=== PATIENT | female | born 1960 | race Caucasian/White ===

== ENCOUNTER 2017-03-29 13:41 | Observation (INO) | payer BC ==
[~2017-03-29] VITALS: Ht 157.5 cm; Wt 93.3 kg
[2017-03-29] MEDS ORDERED: ASPIRIN E.C. 8181 MG PO (14:17)
[2017-03-29] MEDS ORDERED: PROTONIX20 MG PO (14:17)
[2017-03-29] MEDS ORDERED: HYZAAR 25 MG-101 TAB PO (14:18)
[2017-03-29] MEDS ORDERED: REQUIP 1MG T1 MG/TAB PO (14:18)
[2017-03-29] MEDS ORDERED: VITAMIN E 400 U4001 PO (14:19)
[2017-03-29] MEDS ORDERED: CELEXA 20MG20 MG/TAB PO (14:19)
[2017-03-29] MEDS ORDERED: MULTI VITAMINS1 TAB PO (14:19)
[2017-03-29] MEDS ORDERED: IRON90 MG PO (14:20)
[2017-03-29] MEDS ORDERED: VITAMIN D32000 IU PO (14:20)
[2017-03-29 14:54] LABS: BASO # 0.1 (0.0-0.2); BASO % 1.4 % (0.0-2.0); EOS # 0.2 (0.0-0.7); EOS % 3.5 % (0-4.0); GRAN # 3.5 (1.4-6.5); GRAN % 60.7 % (42.2-75.2); HEMATOCRIT 40.2 % (37.0-47.0); HEMOGLOBIN 13.3 g/dl (12.5-16.0); LYMPH # 1.5 (1.2-3.4); LYMPH % 26.7 % (20.0-51.0); MEAN CELL VOLUME 89 fl (80.0-100.0); MEAN CORPUSCULAR HEMOGLOBIN 29 pg (27.0-31.0); MEAN CORPUSCULAR HGB CONC 33 g/dl (33.0-37.0); MEAN PLATELET VOLUME 11.2 fl (7.4-10.4); MONO # 0.4 (0.1-0.6); MONO % 7.5 % (1.7-9.3); PLATELET COUNT 253 K/mm3 (130-400); RED BLOOD COUNT 4.53 M/mm3 (4.10-5.30); REDCELL DISTRIBUTION WIDTH-CV 13.8 % (11.5-14.5); WHITE BLOOD COUNT 5.8 K/mm3 (4.8-10.8)
[2017-03-29 15:00] LABS: PROTHROMBIN TIME 10.8 SECONDS (9.7-12.8)
[2017-03-29 15:03] LABS: ALANINE AMINOTRANSFERASE 41 U/L (9-52); ALBUMIN 4.4 gm/dL (3.5-5.0); ALKALINE PHOSPHATASE 94 U/L (50-136); ANION GAP 16 mmol/L (7-16); BILIRUBIN,TOTAL 0.7 mg/dL (0.0-1.0); BLOOD UREA NITROGEN 13 mg/dL (7-17); CALCIUM 9.3 mg/dL (8.4-10.2); CARBON DIOXIDE 26 mmol/L (22-30); CHLORIDE 102 mmol/L (98-107); CREATININE, serum 0.78 mg/dL (0.52-1.25); GLUCOSE 101 mg/dL (74-106); PARTIAL THROMBOPLASTIN TIME 34.7 SECONDS (26.0-37.0); POTASSIUM 3.6 mmol/L (3.4-5.0); SODIUM 144 mmol/L (137-145); TOTAL PROTEIN 7.3 gm/dL (6.4-8.2)
[2017-03-29 15:15] LABS: TROPONIN-I < 0.012 ng/mL (0.000-0.034)
[2017-03-29 18:42] VITALS: BP 136/50; PULSE 53; TEMP 98.1
[2017-03-29 19:39] VITALS: BP 140/74; PULSE 52; PULSE 58; TEMP 98.1
[2017-03-29 23:51] VITALS: BP 109/54; PULSE 60; TEMP 97.6
[2017-03-30 03:27] VITALS: BP 118/66; PULSE 61; TEMP 98.3
[2017-03-30 07:29] VITALS: BP 125/69; PULSE 52; TEMP 97.5
[2017-03-30 11:07] VITALS: BP 129/72; PULSE 55; TEMP 98
== END 2017-03-30 12:55 | disposition home or self-care (01) ==
LOC: COL.ER 13:41 → MEDICAL 17:13
PROVIDERS: Family Medicine; Internal Medicine Cardiovascular Disease
DX: R07.89 Other chest pain (principal); R00.2 Palpitations; I10 Essential (primary) hypertension; K21.9 Gastro-esophageal reflux disease without esophagitis
CPT/HCPCS: 99239; G0378; J1885; J7030

== ENCOUNTER 2018-12-26 21:20 | Emergency (ER) | payer SELFPAY ==
[~2018-12-26] VITALS: Ht 157.5 cm; Wt 95.5 kg
[~2018-12-26 21:20] MED LIST: ASPIRIN E.C. 8181 MG PO; CELEXA 20MG20 MG/TAB PO; HYZAAR 25 MG-101 TAB PO; IRON90 MG PO; MULTI VITAMINS1 TAB PO; PROTONIX20 MG PO; REQUIP 1MG T1 MG/TAB PO; VITAMIN D32000 IU PO; VITAMIN E 400 U4001 PO
[2018-12-26 21:28] VITALS: TEMP 97.8
[2018-12-26 23:06] LABS: BASO # 0.1 (0.0-0.2); BASO % 0.5 % (0.0-2.0); EOS # 0.1 (0.0-0.7); EOS % 1.4 % (0-4.0); GRAN # 8.4 (1.4-6.5); GRAN % 86.7 % (42.2-75.2); HEMATOCRIT 46.5 % (37.0-47.0); HEMOGLOBIN 15.2 g/dl (12.5-16.0); LYMPH # 0.6 (1.2-3.4); LYMPH % 6.4 % (20.0-51.0); MEAN CELL VOLUME 91 fl (80.0-100.0); MEAN CORPUSCULAR HEMOGLOBIN 30 pg (27.0-31.0); MEAN CORPUSCULAR HGB CONC 33 g/dl (33.0-37.0); MONO # 0.5 (0.1-0.6); MONO % 4.6 % (1.7-9.3); PLATELET COUNT 222 K/mm3 (130-400); RED BLOOD COUNT 5.12 M/mm3 (4.10-5.30); REDCELL DISTRIBUTION WIDTH-CV 13.1 % (11.5-14.5)
[2018-12-26 23:06] LABS: COLLECTION METHOD CLEAN CATCH
[2018-12-26 23:16] LABS: ALANINE AMINOTRANSFERASE 43 U/L (9-52); ALBUMIN 4.5 gm/dL (3.5-5.0); ALKALINE PHOSPHATASE 94 U/L (50-136); ANION GAP 12 mmol/L (7-16); AST,SGOT 41 U/L (15-37); BILIRUBIN,TOTAL 0.7 mg/dL (0.0-1.0); BLOOD UREA NITROGEN 18 mg/dL (7-17); CALCIUM 9.5 mg/dL (8.4-10.2); CARBON DIOXIDE 27 mmol/L (22-30); CHLORIDE 102 mmol/L (98-107); CREATININE, serum 0.74 mg/dL (0.52-1.25); GLUCOSE 100 mg/dL (74-106); LIPASE 97 U/L (23-300); POTASSIUM 3.9 mmol/L (3.4-5.0); SODIUM 141 mmol/L (137-145)
[2018-12-26 23:31] LABS: PROTHROMBIN TIME 11.4 SECONDS (9.7-12.8)
[2018-12-26 23:46] LABS: TROPONIN-I < 0.012 ng/mL (0.000-0.035)
[2018-12-26 23:53] LABS: MUCOUS Present /lpf; PH 5 (5-8); SQUAMOUS EPITHELIAL 0-2 /hpf; URINE APPEARANCE Clear; URINE BACTERIA None Seen /hpf; URINE BILIRUBIN Negative (NEGATIVE); URINE BLOOD 1+ (NEGATIVE); URINE COLOR Yellow; URINE GLUCOSE Negative (NEGATIVE); URINE KETONE Negative (NEGATIVE); URINE LEUKOCYTE ESTERASE Negative (NEGATIVE); URINE NITRATE Negative (NEGATIVE); URINE PROTEIN(semi-quant) Negative (NEGATIVE); URINE UROBILINOGEN Negative (NEGATIVE)
[2018-12-27] MEDS ORDERED: ZOFRAN 4MG T4 MG/TAB PO (02:35)
[2018-12-27 03:00] VITALS: BP 107/75; PULSE 72
== END 2018-12-27 03:00 | disposition home or self-care (01) ==
LOC: COL.ER 21:20
PROVIDERS: Emergency Medicine
DX: R10.31 Right lower quadrant pain (principal); R11.2 Nausea with vomiting, unspecified; I10 Essential (primary) hypertension; K21.9 Gastro-esophageal reflux disease without esophagitis; Z79.82 Long term (current) use of aspirin
CPT/HCPCS: J2405; J3010; J7030; Q9967

== ENCOUNTER → 2019-02-06 | Outpatient (CLI) | payer BC ==
[~2019-02-06] MED LIST changes: +ZOFRAN 4MG T4 MG/TAB PO
== END ==
LOC: MC.RAD 09:34
DX: Z12.31 Encounter for screening mammogram for malignant neoplasm of breast (principal)

== ENCOUNTER → 2019-04-27 | Outpatient (CLI) | payer BC | LOC: ZCOL.LAB 10:32 | DX: R07.9 Chest pain, unspecified (principal) ==

== ENCOUNTER 2019-06-18 08:26 | Outpatient (RCR) | payer BC ==
[2019-06-18 08:26] VITALS: BP 132/59; PULSE 70; TEMP 97.8
[~2019-06-18 08:26] MED LIST changes: +AMOXICILLIN 8751 TAB PO
== END 2019-09-05 | disposition home or self-care (01) ==
LOC: EUO
DX: Z23 Encounter for immunization (principal); S61.451A Open bite of right hand, initial encounter; W55.01XA Bitten by cat, initial encounter

== ENCOUNTER 2019-10-05 18:33 | Emergency (ER) | payer BC ==
[~2019-10-05] VITALS: Ht 157.5 cm; Wt 86.4 kg
[2019-10-05 18:43] VITALS: TEMP 97.4
[2019-10-05 19:22] LABS: BASO # 0.1 (0.0-0.2); BASO % 1.1 % (0.0-2.0); EOS # 0.2 (0.0-0.7); EOS % 3.2 % (0-4.0); GRAN # 3.9 (1.4-6.5); GRAN % 60.6 % (42.2-75.2); HEMOGLOBIN 12.4 g/dl (12.5-16.0); LYMPH # 1.7 (1.2-3.4); LYMPH % 26.1 % (20.0-51.0); MEAN CELL VOLUME 91 fl (80.0-100.0); MEAN CORPUSCULAR HEMOGLOBIN 31 pg (27.0-31.0); MEAN CORPUSCULAR HGB CONC 34 g/dl (33.0-37.0); MEAN PLATELET VOLUME 10.3 fl (7.4-10.4); MONO # 0.6 (0.1-0.6); MONO % 8.5 % (1.7-9.3); PLATELET COUNT 257 K/mm3 (130-400); RED BLOOD COUNT 4.02 M/mm3 (4.10-5.30)
[2019-10-05 19:30] LABS: HEMATOCRIT 36.5 % (37.0-47.0)
[2019-10-05 19:36] LABS: ALANINE AMINOTRANSFERASE 28 U/L (9-52); ALBUMIN 4.2 gm/dL (3.5-5.0); ALKALINE PHOSPHATASE 75 U/L (50-136); ANION GAP 8 mmol/L (7-16); AST,SGOT 29 U/L (15-37); BILIRUBIN,TOTAL 0.3 mg/dL (0.0-1.0); BLOOD UREA NITROGEN 17 mg/dL (7-17); C-REACTIVE PROTEIN 0.7 mg/dL (0.0-0.9); CALCIUM 9.1 mg/dL (8.4-10.2); CARBON DIOXIDE 26 mmol/L (22-30); CHLORIDE 104 mmol/L (98-107); CREATININE, serum 0.85 (0.52-1.25); GLUCOSE 124 mg/dL (74-106); SODIUM 138 mmol/L (137-145); TOTAL PROTEIN 6.9 gm/dL (6.4-8.2)
[2019-10-05 19:45] LABS: TROPONIN-I < 0.012 ng/mL (0.000-0.035)
[2019-10-05] MEDS ORDERED: FLEXERIL 1010 MG/TAB PO (21:34)
[2019-10-05 21:46] VITALS: BP 119/70; PULSE 64
== END 2019-10-05 21:46 | disposition home or self-care (01) ==
LOC: COL.ER 18:33
PROVIDERS: Emergency Medicine
DX: M25.512 Pain in left shoulder (principal); F32.9 Major depressive disorder, single episode, unspecified; I10 Essential (primary) hypertension; Z79.82 Long term (current) use of aspirin
CPT/HCPCS: J2405; J3010

== ENCOUNTER → 2019-12-10 | Outpatient (CLI) | payer BC ==
[~2019-12-10] MED LIST changes: +FLEXERIL 1010 MG/TAB PO
== END ==
LOC: COL.RAD 11:45
DX: R22.1 Localized swelling, mass and lump, neck (principal)

== ENCOUNTER 2020-05-15 10:05 | Emergency (ER) | payer BC ==
[~2020-05-15] VITALS: Ht 157.5 cm; Wt 95.9 kg
[2020-05-15 10:17] VITALS: BP 112/70; TEMP 97.6
[2020-05-15] MEDS ORDERED: VALTREX1 GM PO (11:37)
[2020-05-15 11:45] LABS: BASO # 0.1 (0.0-0.2); BASO % 1.1 % (0.0-2.0); EOS # 0.2 (0.0-0.7); EOS % 3.5 % (0-4.0); GRAN # 3.2 (1.4-6.5); HEMOGLOBIN 11.6 g/dl (12.5-16.0); LYMPH # 1.3 (1.2-3.4); LYMPH % 23.3 % (20.0-51.0); MEAN CELL VOLUME 92 fl (80.0-100.0); MEAN CORPUSCULAR HEMOGLOBIN 31 pg (27.0-31.0); MEAN CORPUSCULAR HGB CONC 34 g/dl (33.0-37.0); MEAN PLATELET VOLUME 10.5 fl (7.4-10.4); MONO # 0.7 (0.1-0.6); PLATELET COUNT 230 K/mm3 (130-400); RED BLOOD COUNT 3.76 M/mm3 (4.10-5.30); REDCELL DISTRIBUTION WIDTH-CV 13.2 % (11.5-14.5)
[2020-05-15 11:48] LABS: HEMATOCRIT 34.6 % (37.0-47.0)
[2020-05-15 11:55] LABS: PARTIAL THROMBOPLASTIN TIME 32.8 SECONDS (26.0-37.0)
[2020-05-15] MEDS ORDERED: FLEXERIL 1010 MG/TAB PO (12:42)
[2020-05-15 13:11] VITALS: PULSE 68
== END 2020-05-15 13:11 | disposition home or self-care (01) ==
LOC: COL.ER 10:05
PROVIDERS: Emergency Medicine
DX: S70.11XA Contusion of right thigh, initial encounter (principal); K21.9 Gastro-esophageal reflux disease without esophagitis; I10 Essential (primary) hypertension; W01.0XXA Fall on same level from slipping, tripping and stumbling without subsequent striking against object, initial encounter; Y92.009 Unspecified place in unspecified non-institutional (private) residence as the place of occurrence of the external cause

== ENCOUNTER 2020-05-19 17:45 | Emergency (ER) | payer BC ==
[~2020-05-19] VITALS: Ht 157.5 cm; Wt 95.9 kg
[~2020-05-19 17:45] MED LIST changes: +VALTREX1 GM PO
[2020-05-19 17:52] VITALS: BP 121/78; TEMP 98.1
[2020-05-19 18:37] LABS: BASO # 0.1 (0.0-0.2); BASO % 1.3 % (0.0-2.0); EOS # 0.2 (0.0-0.7); EOS % 3.1 % (0-4.0); GRAN # 3.5 (1.4-6.5); GRAN % 57.5 % (42.2-75.2); HEMOGLOBIN 11.5 g/dl (12.5-16.0); LYMPH # 1.6 (1.2-3.4); LYMPH % 26.3 % (20.0-51.0); MEAN CELL VOLUME 93 fl (80.0-100.0); MEAN CORPUSCULAR HEMOGLOBIN 31 pg (27.0-31.0); MEAN CORPUSCULAR HGB CONC 33 g/dl (33.0-37.0); MEAN PLATELET VOLUME 10.2 fl (7.4-10.4); MONO # 0.7 (0.1-0.6); MONO % 11.3 % (1.7-9.3); PLATELET COUNT 259 K/mm3 (130-400); RED BLOOD COUNT 3.71 M/mm3 (4.10-5.30); REDCELL DISTRIBUTION WIDTH-CV 14.1 % (11.5-14.5)
[2020-05-19 18:39] LABS: HEMATOCRIT 34.6 % (37.0-47.0); PROTHROMBIN TIME 11.1 SECONDS (9.7-12.8)
[2020-05-19 18:42] LABS: PARTIAL THROMBOPLASTIN TIME 32.3 SECONDS (26.0-37.0)
[2020-05-19 19:45] VITALS: PULSE 78
== END 2020-05-19 19:45 | disposition home or self-care (01) ==
LOC: COL.ER 17:45
PROVIDERS: Physician Assistant
DX: M79.89 Other specified soft tissue disorders (principal); I10 Essential (primary) hypertension; F32.9 Major depressive disorder, single episode, unspecified; Z90.710 Acquired absence of both cervix and uterus
CPT/HCPCS: J1650

== ENCOUNTER → 2020-05-20 | Outpatient (CLI) | payer BC | LOC: COL.VAS 09:16 | DX: M79.89 Other specified soft tissue disorders (principal); M79.661 Pain in right lower leg ==

== ENCOUNTER → 2020-07-14 | Outpatient (CLI) | payer BC ==
[~2020-07-14] VITALS: Ht 157.5 cm; Wt 94.9 kg
[~2020-07-14] MED LIST changes: +CERTAVITE PO; +LUT PO; +NORVASC 5MG5 MG/TAB PO
[2020-07-14 12:21] VITALS: BP 123/68; PULSE 63
[2020-07-14 14:00] VITALS: BP 123/71; PULSE 60
== END ==
LOC: COL.RAD 11:57
DX: E04.1 Nontoxic single thyroid nodule (principal)

== ENCOUNTER → 2020-11-06 | Outpatient (CLI) | payer BC | LOC: COL.RAD 12:12 | DX: R10.2 Pelvic and perineal pain (principal); Z90.710 Acquired absence of both cervix and uterus ==

== ENCOUNTER → 2021-01-30 | Outpatient (CLI) | payer BC | LOC: MC.RAD 07:05 | DX: Z12.31 Encounter for screening mammogram for malignant neoplasm of breast (principal) ==

== ENCOUNTER 2021-02-10 18:54 | Emergency (ER) | payer BC ==
[~2021-02-10] VITALS: Ht 157.5 cm; Wt 99.1 kg
[2021-02-10 18:59] VITALS: TEMP 97.5
[2021-02-10 19:36] LABS: BASO # 0.1 (0.0-0.2); BASO % 1.2 % (0.0-2.0); EOS # 0.2 (0.0-0.7); GRAN # 3.4 (1.4-6.5); GRAN % 56.8 % (42.2-75.2); HEMOGLOBIN 11.3 g/dl (12.5-16.0); LYMPH # 1.6 (1.2-3.4); MEAN CELL VOLUME 87 fl (80.0-100.0); MEAN CORPUSCULAR HEMOGLOBIN 27 pg (27.0-31.0); MEAN CORPUSCULAR HGB CONC 31 g/dl (33.0-37.0); MEAN PLATELET VOLUME 10.6 fl (7.4-10.4); MONO # 0.6 (0.1-0.6); MONO % 10.5 % (1.7-9.3); PLATELET COUNT 276 K/mm3 (130-400); RED BLOOD COUNT 4.18 M/mm3 (4.10-5.30); REDCELL DISTRIBUTION WIDTH-CV 13.8 % (11.5-14.5)
[2021-02-10 19:43] LABS: HEMATOCRIT 36.2 % (37.0-47.0)
[2021-02-10 19:45] LABS: ALANINE AMINOTRANSFERASE 42 U/L (4-34); ALBUMIN 4.2 gm/dL (3.5-5.0); ALKALINE PHOSPHATASE 106 U/L (50-136); ANION GAP 7 mmol/L (7-16); AST,SGOT 45 U/L (15-37); BILIRUBIN,TOTAL 0.2 mg/dL (0.0-1.0); BLOOD UREA NITROGEN 19 mg/dL (7-17); CALCIUM 9.2 mg/dL (8.4-10.2); CARBON DIOXIDE 28 mmol/L (22-30); CHLORIDE 102 mmol/L (98-107); CREATININE, serum 0.89 (0.52-1.25); GLUCOSE 94 mg/dL (74-106); POTASSIUM 3.9 mmol/L (3.4-5.0); SODIUM 137 mmol/L (137-145); TOTAL PROTEIN 7.4 gm/dL (6.4-8.2)
[2021-02-10 19:57] LABS: TROPONIN-I < 0.012 ng/mL (0.000-0.035)
[2021-02-10 20:40] VITALS: BP 139/85; PULSE 65
== END 2021-02-10 20:45 | disposition home or self-care (01) ==
LOC: COL.ER 18:54
PROVIDERS: Nurse Practitioner
DX: R07.89 Other chest pain (principal); I10 Essential (primary) hypertension; Z79.899 Other long term (current) drug therapy

== ENCOUNTER 2021-12-31 22:26 | Inpatient (IN) | payer BC ==
[~2021-12-31] VITALS: Ht 157.5 cm; Wt 103.1 kg
[2021-12-31 22:49] LABS: BASO # 0.1 K/mm3 (0.0-0.2); BASO % 1.2 % (0.0-2.0); EOS # 0.3 K/mm3 (0.0-0.7); GRAN # 3.5 K/mm3 (1.4-6.5); GRAN % 52.4 % (42.2-75.2); HEMOGLOBIN 13.5 g/dl (12.5-16.0); LYMPH % 30.2 % (20.0-51.0); MEAN CELL VOLUME 94 fl (80.0-100.0); MEAN CORPUSCULAR HEMOGLOBIN 32 pg (27-31); MEAN CORPUSCULAR HGB CONC 35 g/dl (33.0-37.0); MEAN PLATELET VOLUME 10.7 fl (7.4-10.4); MONO # 0.8 K/mm3 (0.1-0.6); MONO % 11.8 % (1.7-9.3); PLATELET COUNT 257 K/mm3 (130-400); RED BLOOD COUNT 4.17 M/mm3 (4.10-5.30)
[2021-12-31 23:04] LABS: ALANINE AMINOTRANSFERASE 45 U/L (0-55); ALBUMIN 4.2 gm/dL (3.4-4.8); ALKALINE PHOSPHATASE 88 U/L (40-150); ANION GAP 13 mmol/L (7-16); AST,SGOT 35 U/L (5-34); BILIRUBIN,TOTAL 0.3 mg/dL (0.2-1.2); BLOOD UREA NITROGEN 17 mg/dL (10-20); CALCIUM 9.2 mg/dL (8.4-10.2); CARBON DIOXIDE 25 mmol/L (23-31); CHLORIDE 105 mmol/L (98-107); CREATININE, serum 1.22 mg/dL (0.57-1.11); GLUCOSE 106 mg/dL (70-99); POTASSIUM 3.9 mmol/L (3.5-4.5); SODIUM 143 mmol/L (136-145)
[2021-12-31 23:10] LABS: TROPONIN-I < 0.010 ng/mL (0.00-0.033)
[2021-12-31] MEDS ORDERED: DITROPAN 5MG TAB5 MG PO (23:44)
[2021-12-31] MEDS ORDERED: PROTONIX 40MG T40 MG PO (23:45)
[2021-12-31] MEDS ORDERED: COZAAR100 MG PO (23:45)
[2021-12-31] MEDS ORDERED: HCTZ 25MG TAB25 MG PO (23:45)
[2021-12-31] MEDS ORDERED: MOBIC 7.5MG7.5 MG PO (23:46)
[2021-12-31] MEDS ORDERED: REQUIP 1MG T1 MG/TAB PO (23:46)
[2022-01-01] VITALS (341 sets, daily range): BP systolic 103–165; BP diastolic 47–92; PULSE 46–82; TEMP 97.2–98.5; O2SAT 90–100
--- NOTE | 2022-01-01 00:24 | NUR ---
RECEIVED REPORT FROM JOSE A DEL CID. AWAITING ARRIVAL OF PT TO ICU 1.
[2022-01-01 00:39] LABS: PROTHROMBIN TIME 11.2 SECONDS (9.7-12.8)
[2022-01-01 00:41] LABS: PARTIAL THROMBOPLASTIN TIME 33.9 SECONDS (26.0-37.0)
--- NOTE | 2022-01-01 00:41 | NUR ---
PT ARRIVED TO ICU 1 VIA BED. TRANSFERS SELF TO ICU BED. PLACED ON BEDSIDE CONTINOUS MONITOR. PT SENT ALL PERSONAL BELONGINGS HOME WITH SON AND CLOTHES ARE IN THE CLOSET. PT STATES CP IS MIDSTERNAL 3\10 AT THIS TIME AND STATES IT COMES AND GOES. DISCUSSED POC WITH PT, VERBALIZED UNDERSTANDING. VSS. CALL LIGHT WITHIN REACH. SEE GTT FLOWSHEET.
[2022-01-01 05:49] LABS: BASO # 0.1 K/mm3 (0.0-0.2); BASO % 1.6 % (0.0-2.0); EOS # 0.2 K/mm3 (0.0-0.7); EOS % 4.5 % (0.0-4.0); GRAN # 2.7 K/mm3 (1.4-6.5); GRAN % 52.6 % (42.2-75.2); HEMATOCRIT 35.2 % (37.0-47.0); LYMPH # 1.5 K/mm3 (1.2-3.4); LYMPH % 28.9 % (20.0-51.0); MEAN CELL VOLUME 94 fl (80.0-100.0); MEAN CORPUSCULAR HEMOGLOBIN 32 pg (27-31); MEAN CORPUSCULAR HGB CONC 34 g/dl (33.0-37.0); MEAN PLATELET VOLUME 11.3 fl (7.4-10.4); MONO # 0.6 K/mm3 (0.1-0.6); MONO % 11.8 % (1.7-9.3); PLATELET COUNT 188 K/mm3 (130-400); RED BLOOD COUNT 3.74 M/mm3 (4.10-5.30); REDCELL DISTRIBUTION WIDTH-CV 13.1 % (11.5-14.5)
[2022-01-01 06:06] LABS: CHOLESTEROL 175 mg/dL (0-199); CHOLESTEROL RISK RATIO 5.3; HDL CHOLESTEROL 33 mg/dL (40-60); LDL CHOLESTEROL 92 mg/dL; TRIGLYCERIDE 249 mg/dL (0-149)
[2022-01-01 06:14] LABS: TROPONIN-I 6 HR POST INITIAL < 0.010 ng/mL (0.00-0.033)
--- NOTE | 2022-01-01 11:40 | NUR ---
See merge for all intra/post medication, vital sign, and assessment times.
[2022-01-01] MEDS ORDERED: MYLANTA 150 ML150 M1 PO (12:50)
--- NOTE | 2022-01-01 13:10 | NUR ---
[employer] worker helper met with patient and spouse to discuss discharge planning. Patient lives with spouse and and states she works. Patient 's primary care provider is Dr Harris and patient denies any concerns with obtaining her prescriptions. Worker provided patient with written and verbal information on living will and durable power of banking attorney for health care. Worker offered to assist patient with completion of documents. Patient will discharge home upon discharge. Patient plans discharge home upon discharge.
== END 2022-01-01 17:00 | disposition home or self-care (01) | DRG 392 ==
LOC: COL.ER 22:26 → ICU 23:54
PROVIDERS: Emergency Medicine; Nurse Practitioner Family; ADMIT Internal Medicine
PROC: 4A023N7 Measurement of Cardiac Sampling and Pressure, Left Heart, Percutaneous Approach (ICD-10-PCS; principal; 2021-12-31)
PROC: B2111ZZ Fluoroscopy of Multiple Coronary Arteries using Low Osmolar Contrast (ICD-10-PCS; 2021-12-31)
DX: K21.9 Gastro-esophageal reflux disease without esophagitis (principal); N17.9 Acute kidney failure, unspecified; I10 Essential (primary) hypertension; G25.81 Restless legs syndrome; E86.1 Hypovolemia; F32.A Depression, unspecified; G47.30 Sleep apnea, unspecified; Z20.822 Contact with and (suspected) exposure to COVID-19
CPT/HCPCS: OP; A9500; J1644; J2250; J2270; J2785; J3010; J7030; Q9967

== ENCOUNTER → 2022-03-29 | Outpatient (CLI) | payer BC ==
[~2022-03-29] MED LIST changes: +COZAAR100 MG PO; +DITROPAN 5MG TAB5 MG PO; +HCTZ 25MG TAB25 MG PO; +MOBIC 7.5MG7.5 MG PO; +MYLANTA 150 ML150 M1 PO; +PROTONIX 40MG T40 MG PO
== END ==
LOC: MC.RAD 02-19 10:00
DX: Z12.31 Encounter for screening mammogram for malignant neoplasm of breast (principal)